=== PATIENT | female | born 2000 | race Two or more races ===

== ENCOUNTER 2023-08-18 13:47 | Inpatient (IN) ==
[2023-08-18 14:29] LABS: BILIRUBIN,URINE NEGATIVE (NEGATIVE); BLOOD/HEMOGLOBIN,URINE 5+ (NEGATIVE); GLUCOSE, URINE NEGATIVE (NEGATIVE); KETONES,URINE NEGATIVE (NEGATIVE); LEUKOCYTE ESTERASE ,URINE 2+ (NEGATIVE); NITRITES,URINE POSITIVE (NEGATIVE); PROTEIN,URINE 3+ (NEGATIVE); UROBILINOGEN,URINE 2+ (NORMAL)
[2023-08-18] MEDS ORDERED: MOTRIN TAB 600 MG PO ONE (14:38)
[2023-08-18 14:43] LABS: APPEARANCE,URINE HAZY (CLEAR); COLOR,URINE YELLOW (YELLOW); RBC,URINE 0-2 /HPF (0-3); SQUAMOUS EPITHELIAL CELL,UR FEW /HPF (NEGATIVE)
[2023-08-18] MEDS: MOTRIN TAB 600 MG PO PRN (14:43)
[2023-08-18 14:44] LABS: BASOPHILS # (AUTO) 0.1 X10^3/uL (0.0-0.1); BASOPHILS % (AUTO) 0.9 % (0.2-1.0); EOSINOPHILS % (AUTO) 0.1 % (0.9-2.9); HEMATOCRIT 31.5 % (36.0-47.0); HEMOGLOBIN 10.6 g/dL (12.0-16.0); LYMPHOCYTES # (AUTO) 1.1 X10^3/uL (1.3-2.9); MEAN CORPUSCULAR HEMOGLOBIN 27.7 pg (27.0-34.0); MEAN CORPUSCULAR HGB CONC 33.7 g/dL (33.0-35.0); MEAN CORPUSCULAR VOLUME 82.1 fL (80.0-100.0); MEAN PLATELET VOLUME 7.8 fL (7.4-11.0); MONOCYTES # (AUTO) 1.5 x10^3/uL (0.3-0.8); NEUTROPHILS # (AUTO) 7.1 x10^3/uL (2.2-4.8); PLATELET COUNT 261 X10^3/uL (150.0-450.0); RED BLOOD COUNT 3.83 X10^6/uL (3.5-5.4); RED CELL DISTRIBUTION WIDTH 21.8 % (11.6-16.5); WHITE BLOOD COUNT 9.7 X10^3/uL (3.6-10.0)
[2023-08-18 14:44] LABS: BACTERIA,URINE 4+ /HPF (NEGATIVE)
[2023-08-18] MEDS ORDERED: NS 1,000 ML IV 1,000 ML ONE (14:56)
[2023-08-18 15:00] LABS: ALANINE AMINOTRANSFERASE 48 Units/L (12-78); ALBUMIN 3.3 g/dL (3.4-5.0); ALKALINE PHOSPHATASE 195 Units/L (46-116); ASPARTATE AMINO TRANSFERASE 44 Units/L (15-37); BLOOD UREA NITROGEN 8 mg/dL (7-18); CALCIUM 8.3 mg/dL (8.5-10.1); CARBON DIOXIDE 25.9 mmol/L (21-32); CHLORIDE 98 mmol/L (98-107); COR CA(FOR HYPOALB) 8.9 mg/dL (8.5-10.1); COR NA(FOR HYPERGLY) 135 mmol/L (136-145); CREATININE 0.84 mg/dL (0.55-1.02); GLUCOSE 118 mg/dL (65-99); POTASSIUM 3.1 mmol/L (3.5-5.1); SODIUM 135 mmol/L (136-145); TOTAL PROTEIN 8.1 g/dL (6.4-8.2); eGFR NON BLACK RACES > 60 (>60)
[2023-08-18] MEDS: NS 1,000 ML IV 1,000 ML IV ONE (15:00)
[2023-08-18 15:04] LABS: PLATELET MORPHOLOGY COMMENT NORMAL (NORMAL)
[2023-08-18 15:05] LABS: ANISOCYTOSIS 1+
[2023-08-18] MEDS ORDERED: OMNIPAQUE 350 mg/mL 100 mL BTL 100 ML ONE (15:13)
[2023-08-18] MEDS ORDERED: MORPHINE SULFATE INJ 2 MG INJ ONE (15:13)
[2023-08-18] MEDS: MORPHINE SULFATE INJ 2 MG INJ IVP ONE (15:21)
[2023-08-18] MEDS ORDERED: BENADRYL INJ 50 MG VIAL ONE (15:35)
[2023-08-18] MEDS ORDERED: K-DUR TAB 20 MEQ PO ONE (16:10)
[2023-08-18] MEDS: K-DUR TAB 20 MEQ PO ONE (16:13)
--- NOTE | 2023-08-18 16:16 | DR.HEADACH ---
HPI Time Seen Time Seen by Provider: 08/18/23 16:16 Primary Care Physician Primary Care Physician: SARIKA HPI Comment HPI Comment: pt only speaks haitian .According to her she ahs been havng feever sinceyesterday but has abdominal pin locates i the upper belly and lower belly for at elast 2 weeks .upper belly worse with eating mild to moderate intensity .gets better on its own but not associated with nausea or vomiting Llower belly pain intermittent .may have urinary frequency and no pian or burning when urinate .no vaginal discharge .Did have a baby 2 month ago Complaint/Symptoms Chief Complaint Doctors Comments: fever and abdominal pain Chief Complaint:: pt reports fever and sweats since Sunday. has taken medication for fever and has not helped. reports abdominal pain, headache, back pain, and pain in legs. states every time she eats/drinks she vomits which has been ongoing x15-20 days Self Treatment fo Chief Complaint: tylenol for pain/fever COVID-19 Coronavirus risk:travel/contact w/high risk person: No Has patient experienced Coronavirus symptoms: Yes Coronavirus symptoms experienced: Fever Source History Provided: Patient Mode of Arrival Mode of Arrival: Ambulatory Timing Onset of Chief Complaint: 08/18/23 PMH PMH Past Medical History: No Past Surgical History: No Family History History of Family Medical Conditions: No Social History Type of Tobacco Use: None Does any household member use tobacco: No Alcohol Use: None Do you use any recreational Drugs:: No Lives With: Spouse Lives Where: Home Travel Risk Coronavirus risk:travel/contact w/high risk person: No Has patient experienced Coronavirus symptoms: Yes Coronavirus symptoms experienced: Fever Infectious screening Have you traveled outside the country in the last 6 months?: No Isolation: Standard ROS Review of Systems Constitutional: Fever Eyes: No Symptoms Reported ENTM: No Symptoms Reported Respiratoy: No Symptoms Reported Gastrointestinal/Abdominal: Abdominal Pain Genitourinary: Frequency Neurological: No Symptoms Reported Musculoskeletal: No Symptoms Reported PE Vital Signs Vitals: Vital Signs Temperature 98.9 F Temperature 98.9 F Temperature 103.0 F Pulse Rate 117 Pulse Rate 115 Pulse Rate 113 Pulse Rate 134 Respiratory Rate 20 Respiratory Rate 20 Respiratory Rate 22 Respiratory Rate 22 Blood Pressure [Right Arm] 102/55 Blood Pressure 106/58 Blood Pressure 102/55 O2 Sat by Pulse Oximetry 100 O2 Sat by Pulse Oximetry 100 O2 Sat by Pulse Oximetry 100 O2 Sat by Pulse Oximetry 100 O2 Sat by Pulse Oximetry 98 General Limitations: Language Barrier General Appearance: Alert and Anxious Head Head Exam: Normal Inspection, Atraumatic and Normocephalic Eyes Eye exam: Normal Appearance and PERRL ENT ENT Exam: Mucous Membranes Dry External Ear Exam: Normal External Inspection Throat Exam: Normal Inspection Chest Chest Inspection: Normal Inspection and Symmetric Chest Wall Rise Respiratory Respiratory Exam: Normal Lung Sounds Bilat Respiratory Exam: Bilateral: Clear to Auscultation Cardiovascular Cardiovascular Exam: Tachycardia, +S1 and +S2 Abdominal Exam Abdominal Exam: Normal Bowel Sounds, Soft and Tenderness Abdominal Tenderness: Epigastrium, Suprapubic and Other Extremities Extremities Exam: Normal Inspection Back Back Exam: (R) CVA Tenderness and (L) CVA Tenderness Neurologic Neurological Exam: Alert Skin Skin Exam: Normal Color MDM Differential Diagnosis Differential Diagnosis Comment: GASTRITIS,PYELONEPHRITIS ACUTE COURSE Treatment Treatment: FLUIDS,LABS ,CT ABDOMEN AND PLEVIS ,IV antibiotics Reevaluation 1st: Unchanged ROR Labs Reviewed Laboratory Results Reviewed?: Yes 08/18/23 14:40 08/18/23 14:40 Laboratory: WBC 9.7 X10^3/uL (3.6-10.0) 08/18/23 14:40 RBC 3.83 X10^6/uL (3.5-5.4) 08/18/23 14:40 Hgb 10.6 g/dL (12.0-16.0) L 08/18/23 14:40 Hct 31.5 % (36.0-47.0) L 08/18/23 14:40 MCV 82.1 fL (80.0-100.0) 08/18/23 14:40 MCH 27.7 pg (27.0-34.0) 08/18/23 14:40 MCHC 33.7 g/dL (33.0-35.0) 08/18/23 14:40 RDW 21.8 % (11.6-16.5) H 08/18/23 14:40 Plt Count 261 X10^3/uL (150.0-450.0) 08/18/23 14:40 Plt Count Comment Adequate (ADEQUATE) 08/18/23 14:40 MPV 7.8 fL (7.4-11.0) 08/18/23 14:40 Neut % (Auto) 73.0 % (42.0-75.0) 08/18/23 14:40 Lymph % (Auto) 11.0 % (21.0-51.0) L 08/18/23 14:40 [place] % (Auto) 15.0 % (0.0-13.0) H 08/18/23 14:40 Eos % (Auto) 0.1 % (0.9-2.9) L 08/18/23 14:40 Baso % (Auto) 0.9 % (0.2-1.0) 08/18/23 14:40 Neut # (Auto) 7.1 x10^3/uL (2.2-4.8) H 08/18/23 14:40 Lymph # (Auto) 1.1 X10^3/uL (1.3-2.9) L 08/18/23 14:40 [place] # (Auto) 1.5 x10^3/uL (0.3-0.8) H 08/18/23 14:40 Eos # (Auto) 0.0 x10^3/uL (0.0-0.2) 08/18/23 14:40 Baso # (Auto) 0.1 X10^3/uL (0.0-0.1) 08/18/23 14:40 Absolute Nucleated RBC 0.0 /100WBC 08/18/23 14:40 Plt Morphology Comment Normal (NORMAL) 08/18/23 14:40 RBC Morphology Abnormal (NORMAL) A 08/18/23 14:40 Anisocytosis 1+ A 08/18/23 14:40 Sodium 135 mmol/L (136-145) L 08/18/23 14:40 Corrected Sodium 135 mmol/L (136-145) L 08/18/23 14:40 Potassium 3.1 mmol/L (3.5-5.1) L 08/18/23 14:40 Chloride 98 mmol/L (98-107) 08/18/23 14:40 Carbon Dioxide 25.9 mmol/L (21-32) 08/18/23 14:40 BUN 8 mg/dL (7-18) 08/18/23 14:40 Creatinine 0.84 mg/dL (0.55-1.02) 08/18/23 14:40 Est GFR (MDRD) Af Amer > 60 (>60) 08/18/23 14:40 Est GFR (MDRD) Non-Af > 60 (>60) 08/18/23 14:40 Glucose 118 mg/dL (65-99) H 08/18/23 14:40 Lactic Acid 0.8 mmol/L (0.4-2.0) 08/18/23 14:40 Calcium 8.3 mg/dL (8.5-10.1) L 08/18/23 14:40 Corrected Calcium 8.9 mg/dL (8.5-10.1) 08/18/23 14:40 Total Bilirubin 0.30 mg/dL (0.2-1.0) 08/18/23 14:40 AST 44 Units/L (15-37) H 08/18/23 14:40 ALT 48 Units/L (12-78) 08/18/23 14:40 Alkaline Phosphatase 195 Units/L (46-116) H 08/18/23 14:40 Creatine Kinase 43 Units/L (26-192) 08/18/23 14:56 Total Protein 8.1 g/dL (6.4-8.2) 08/18/23 14:40 Albumin 3.3 g/dL (3.4-5.0) L 08/18/23 14:40 Globulin 4.8 g/dL (2.5-4.5) H 08/18/23 14:40 Albumin/Globulin Ratio 0.7 Ratio (1.1-2.1) L 08/18/23 14:40 Specimen Type Clean catch urine 08/18/23 14:16 Urine Color Yellow (YELLOW) 08/18/23 14:16 Urine Appearance Hazy (CLEAR) 08/18/23 14:16 Urine pH 6.0 (5.0 - 8.0) 08/18/23 14:16 Ur Specific [place] 1.015 (1.000-1.030) 08/18/23 14:16 Urine Protein 3+ (NEGATIVE) 08/18/23 14:16 Urine Glucose (UA) Negative (NEGATIVE) 08/18/23 14:16 Urine Ketones Negative (NEGATIVE) 08/18/23 14:16 Urine Blood 5+ (NEGATIVE) 08/18/23 14:16 Urine Nitrite Positive (NEGATIVE) 08/18/23 14:16 Urine Bilirubin Negative (NEGATIVE) 08/18/23 14:16 Urine Urobilinogen 2+ (NORMAL) 08/18/23 14:16 Ur Leukocyte Esterase 2+ (NEGATIVE) 08/18/23 14:16 Urine RBC 0-2 /HPF (0-3) 08/18/23 14:16 Urine WBC 10-20 /HPF (0-5) A 08/18/23 14:16 Ur Squamous Epith Cells Few /HPF (NEGATIVE) 08/18/23 14:16 Amorphous Sediment Trace /HPF (NEGATIVE) 08/18/23 14:16 Urine Bacteria 4+ /HPF (NEGATIVE) 08/18/23 14:16 Urine Mucus Rare /HPF (NEGATIVE) 08/18/23 14:16 Ur Culture Indicated? Yes/culture set up 08/18/23 14:16 SARS-CoV-2 (PCR) Negative (NEGATIVE) 08/18/23 15:15 Influenza Type A (PCR) Negative (NEGATIVE) 08/18/23 15:15 Influenza Type B (PCR) Negative (NEGATIVE) 08/18/23 15:15 RSV (PCR) Negative (NEGATIVE) 08/18/23 15:15 Other Results Comments: CT SCAN SUGGESTIVE OF ACUTE PYELONEPHRITIS Opioid Opioid Risk Tool Age (Brice box if 16-45): No History of Preadolescent Sexual Abuse: No Total: 0 Total Score Risk Category: Low Risk Copyright: Gordy LAURA predicting aberrant behaviors Discharge Plan Diagnosis Discharge Problem: Acute pyelonephritis, Acute hypokalemia, Acute dehydration, Gastritis Discharge Plan Patient Disposition: 09 ADMITTED INPATIENT Condition: Stable Health Concerns: Post Hospitalization: new medications and changes needed to prevent readmission or further decline. Pt educated and given instructions on all concerns. Plan of Treatment: Continue with present treatment and follow up plan. Pt is to keep follow up appointment as instructed and take medications as ordered. Follow ups/Referrals Follow ups/Referrals: [facility],None [Primary Care Provider] - 3 days Instructions Stand Alone Forms: Post Hospital Follow Up Care
--- NOTE | 2023-08-18 16:26 | CT ---
EXAM: CT ABDOMEN AND PELVIS WITH INTRAVENOUS CONTRASTHISTORY: Abdominal pain. Pyelonephritis.TECHNIQUE: Spiral axial CT images are obtained through the abdomen and pelvis without the administration of oral contrast and with the administration of intravenous contrast. Additional coronal and sagittal reformatted images are reconstructed.DOSIMETRY: Total DLP 155.9 mGycm; CTDI 2.92 mGyCOMPARISON: None available.FINDINGS:Note: Exam degraded by motion artifacts.GASTROINTESTINAL TRACT: Nonspecific, fluid-filled, nondilated stomach, small bowel loops, and right-sided large bowel loops; presumed gastroenteritis with impending diarrhea. Clinical correlation is advised. There is no evidence for bowel herniation, bowel obstruction, colitis or diverticulitis. A normal-appearing appendix is seen.GENITOURINARY SYSTEM: There is a striated right renal cortical nephrogram with asymmetric enlargement of the right kidney and mild perinephric stranding, in keeping with acute pyelonephritis in the appropriate clinical setting. Clinical correlation is advised. The kidneys are otherwise unremarkable. There is no ureteral calculus or stigmata of obstructive uropathy. The urinary bladder is grossly unremarkable for a non-dedicated exam.REPRODUCTIVE SYSTEM: The uterus and adnexa appear grossly unremarkable for a CT scan. Consider follow-up dedicated imaging as clinically warranted.CT ABDOMEN: The liver, spleen, pancreas, adrenal glands, gallbladder, aorta, and inferior vena cava are within normal limits for a CT scan. There is no intra-abdominal or retroperitoneal lymphadenopathy, free fluid, or free air seen. No abdominal herniation is noted.CT PELVIS: No pelvic sidewall or inguinal lymphadenopathy is seen. No inguinal herniation is noted. No free fluid or free air is seen.BONES AND JOINTS: The visualized bony structures are within normal limits.LUNG BASES: The lung bases are clear.IMPRESSION:1. Striated right renal cortical nephrogram with asymmetric enlargement of the right kidney and mild perinephric stranding, in keeping with acute pyelonephritis in the appropriate clinical setting. Clinical correlation is advised.2. No evidence for renal stone disease or obstructive uropathy.3. Nonspecific, fluid-filled, nondilated stomach, small bowel loops, and right-sided large bowel loops; presumed gastroenteritis with impending diarrhea. Clinical correlation is advised.4. No evidence for acute appendicitis, bowel herniation/obstruction, colitis or diverticulitis seen.5. No free fluid, free air, mass lesions, or lymphadenopathy seen.THIS IS AN ELECTRONICALLY VERIFIED FINAL REPORT08/18/2023 4:22 PM - Electronically signed by Margarita Heller
[2023-08-18] MEDS ORDERED: LEVAQUIN PREMIX IV 750 MG 750 MG/150 ML BAG IV ONE (17:02)
[2023-08-18] MEDS: OFIRMEV IV 1000 MG VIAL 1,000 MG/100 ML VIAL IV PRN (17:19)
[2023-08-18] MEDS: LEVAQUIN PREMIX IV 750 MG 750 MG/150 ML BAG IV SCH (17:50)
[2023-08-18] MEDS: NS 1,000 ML IV 1,000 ML ONE (17:50)
[2023-08-18] MEDS: OFIRMEV IV 1000 MG VIAL 1,000 MG/100 ML VIAL IV ONE (17:50)
[2023-08-18 18:29] VITALS: BMI 18.1
[2023-08-18] MEDS: PriLOSEC PO SCH (19:34)
[2023-08-18] MEDS: NS 1,000 ML IV 1,000 ML IV SCH (19:40)
[2023-08-19 06:35] LABS: BASOPHILS # (AUTO) 0.1 X10^3/uL (0.0-0.1); BASOPHILS % (AUTO) 0.5 % (0.2-1.0); EOSINOPHILS # (AUTO) 0.1 x10^3/uL (0.0-0.2); EOSINOPHILS % (AUTO) 1.1 % (0.9-2.9); HEMATOCRIT 24.5 % (36.0-47.0); HEMOGLOBIN 8.4 g/dL (12.0-16.0); LYMPHOCYTES % (AUTO) 9.8 % (21.0-51.0); MEAN CORPUSCULAR HEMOGLOBIN 28.3 pg (27.0-34.0); MEAN CORPUSCULAR HGB CONC 34.4 g/dL (33.0-35.0); MEAN CORPUSCULAR VOLUME 82.3 fL (80.0-100.0); MONOCYTES # (AUTO) 1.8 x10^3/uL (0.3-0.8); MONOCYTES % (AUTO) 17.8 % (0.0-13.0); NEUTROPHILS % (AUTO) 70.8 % (42.0-75.0); PLATELET COUNT 206 X10^3/uL (150.0-450.0); RED BLOOD COUNT 2.97 X10^6/uL (3.5-5.4); RED CELL DISTRIBUTION WIDTH 21.1 % (11.6-16.5); WHITE BLOOD COUNT 9.8 X10^3/uL (3.6-10.0)
[2023-08-19 06:48] LABS: ALANINE AMINOTRANSFERASE 38 Units/L (12-78); ALBUMIN 2.3 g/dL (3.4-5.0); ALKALINE PHOSPHATASE 153 Units/L (46-116); ASPARTATE AMINO TRANSFERASE 32 Units/L (15-37); BLOOD UREA NITROGEN 8 mg/dL (7-18); CALCIUM 7.6 mg/dL (8.5-10.1); CARBON DIOXIDE 23.6 mmol/L (21-32); CHLORIDE 106 mmol/L (98-107); COR NA(FOR HYPERGLY) 139 mmol/L (136-145); CREATININE 0.58 mg/dL (0.55-1.02); GLUCOSE 119 mg/dL (65-99); MAGNESIUM 1.8 mg/dL (2.0-2.9); POTASSIUM 3.4 mmol/L (3.5-5.1); SODIUM 139 mmol/L (136-145); TOTAL PROTEIN 6.1 g/dL (6.4-8.2); eGFR NON BLACK RACES > 60 (>60)
[2023-08-19 07:25] LABS: ANISOCYTOSIS 1+; PLATELET MORPHOLOGY COMMENT NORMAL (NORMAL)
[2023-08-19] MEDS ORDERED: CONSULT PHARMACY - POTASSIUM & MAGNESIUM XX SCH (08:00)
[2023-08-19] MEDS ORDERED: MAG-OX TAB PO SCH (09:00)
[2023-08-19] MEDS ORDERED: NS 100 ML IV 100 ML with VENOFER 400 MG IV ONE (09:26)
[2023-08-19] MEDS ORDERED: MAGNESIUM SULFATE 1 GRAM/100 mL PREMIX 1 G/100 ML BAG IV SCH (09:27)
[2023-08-19] MEDS: K-DUR TAB 20 MEQ PO SCH (10:03)
[2023-08-19] MEDS: NS 100 ML IV 100 ML with VENOFER 400 MG IV ONE (10:04)
[2023-08-19] MEDS: NS 1,000 ML IV 1,000 ML with MAGNESIUM SULFATE 50% INJ VIAL 1 G IV SCH (11:04)
[2023-08-19 13:44] VITALS: BP 103/56; PULSE 63; O2SAT 100
[2023-08-19] MEDS: TYLENOL 500 MG TAB EXTRA STRENGTH PO ONE ×2 (14:16→15:48)
[2023-08-19 15:38] VITALS: TEMP 99.3
[2023-08-19 15:49] VITALS: RESP 18
== END 2023-08-19 17:00 | disposition home or self-care (01) | DRG 690 ==
LOC: ER 13:47 → MED/SURG 17:36
PROVIDERS: ADMIT Obstetrics & Gynecology Obstetrics; ATTEND Obstetrics & Gynecology Obstetrics